=== PATIENT | male | born 1960 | race Caucasian/White ===

== ENCOUNTER 2018-02-19 10:06 | Emergency (ER) | payer SELFPAY ==
[2018-02-19] MEDS: FLUCONAZOLE 100 MG TAB PO (11:20)
== END 2018-02-19 11:49 | disposition home or self-care (01) ==
LOC: NEPD 10:06
DX: B35.6 Tinea cruris (principal); F17.210 Nicotine dependence, cigarettes, uncomplicated; R00.1 Bradycardia, unspecified
CPT/HCPCS: 93005; 99283